=== PATIENT | female | born 1990 | race Caucasian/White ===

== ENCOUNTER 2016-08-15 21:51 | Emergency (ER) | payer OTHER ==
[~2016-08-15] VITALS: Ht 154.9 cm; Wt 52.6 kg
[2016-08-15 23:02] LABS: ABSOLUTE BASOPHIL COUNT 0 /CUMM (0.0-0.2); ABSOLUTE EOSINOPHIL COUNT 0.2 /CUMM (0.0-0.7); ABSOLUTE GRANULOCYTE CT 2.5 /CUMM (1.4-6.5); ABSOLUTE LYMPH COUNT 2.2 /CUMM (1.2-3.4); ABSOLUTE MONOCYTE COUNT 0.3 /CUMM (0.10-0.60); BASOPHIL % 0.6 % (0.0-2.0); GRANULOCYTE % 48.7 % (42.2-75.2); HEMATOCRIT 32.3 % (37-47); MEAN CORPUSCULAR HGB CONC 32.4 G/DL (33.0-37.0); MEAN PLATELET VOLUME 11.3 FL (7.4-10.4); RBC DISTRIBUTION WIDTH 18.7 % (11.5-14.5); RED BLOOD CELL CT 4.19 /CUMM (4.20-5.40); WHITE BLOOD CELL COUNT 5.2 /CUMM (4.8-10.8)
[2016-08-15 23:14] LABS: PLATELET COUNT 166 /CUMM (130-400)
--- NOTE | 2016-08-16 00:07 | ED GI/GU/ABDOMINAL COMPLAINT ---
History of Present Illness General Chief Complaint: General Adult Stated Complaint: "?KIDNEY STONE, L SIDE PAIN" PER PT Source: patient, old records Exam Limitations: no limitations Vital Signs & Intake/Output Vital Signs & Intake/Output Vital Signs Date Time Temp Pulse Resp B/P B/P Pulse O2 O2 Flow FiO2 Mean Ox Delivery Rate 08/15 2344 Room Air 08/15 2340 96.3 67 18 122/58 100 Room Air 08/15 2201 98.7 105 18 124/74 100 Room Air ED Intake and Output 08/16 0000 08/15 1200 Intake Total 1000 Output Total Balance 1000 Intake, IV 1000 Patient 116 lb Weight Weight Reported by Patient Measurement Method Allergies Coded Allergies: brompheniramine (From DIMETAPP (BROMPHENIRAMINE-PPA)) (Severe, ITCHING 08/15/16) guaifenesin (From ROBITUSSIN) (Severe, HIVES 08/15/16) phenylpropanolamine (From DIMETAPP (BROMPHENIRAMINE-PPA)) (Severe, ITCHING 08/15) Reconcile Medications No Known Home Medications Triage Note: PT TO ED FOR KIDNEY STONES, REPORTING SHE HAS A HX OF SAME. REPORTING WORSENING L SIDED FLANK PAIN RADIATING INTO LEFT LOWER ABD TODAY. REPORTING ONE EPISODE OF HEMATURIA TODAY. Triage Nurses Notes Reviewed? yes LMP (ages 10-50): unknown ? n Is pt currently ? No Onset: 1 day Duration: day(s):, changing over time, continues in ED, getting worse, waxing and waning Timing: recent history Quality/Severity: aching, sharpness, severe Location: left flank Radiation: LLQ Activities at Onset: none Prior Abdominal Problems: similar symptoms Past Sexual History: Unobtainable at this time No Modifying Factors: none Associated Symptoms: abdominal pain, dysuria, loss of appetite HPI: 1 day prior to admission patient complains of progressive waxing and waning left flank pain sharp mild now severe rating to the left lower quadrant associated with dysuria. Pain is similar to previous kidney stones. She denies fever chills vomiting diarrhea chest pain cough shortness of breath headache rash bleeding . Past History Travel History Traveled to [place] past 21 day No Medical History Any Pertinent Medical History? see below for history Neurological: NONE EENT: NONE Cardiovascular: NONE Respiratory: asthma Gastrointestinal: NONE Hepatic: NONE Renal: KIDNEY STONES NEPHROSTOMY TUBE Musculoskeletal: NONE Psychiatric: NONE Endocrine: NONE Blood Disorders: NONE Cancer(s): NONE Surgical History Surgical History: ureteral stent Psychosocial History What is your primary language [place] Tobacco Use: Never used ETOH Use: denies use Illicit Drug Use: denies illicit drug use Family History Hx Contributory? No Review of Systems Review of Systems Constitutional: Reports: no symptoms. EENTM: Reports: no symptoms. Respiratory: Reports: no symptoms. Cardiovascular: Reports: no symptoms. GI: Reports: no symptoms. Genitourinary: Reports: see HPI, dysuria, pain. Musculoskeletal: Reports: no symptoms. Skin: Reports: no symptoms. Neurological/Psychological: Reports: no symptoms. Hematologic/Endocrine: Reports: no symptoms. Immunologic/Allergic: Reports: no symptoms. All Other Systems: Reviewed and Negative Physical Exam Physical Exam General Appearance: well developed/nourished, alert, awake, anxious, severe distress, thin Head: atraumatic, normal appearance Eyes: Bilateral: normal appearance, PERRL, EOMI, normal inspection. Ears, Nose, Throat, Mouth: hearing grossly normal, moist mucous membrane Neck: normal inspection, supple, full range of motion, normal alignment Respiratory: normal breath sounds, chest non-tender, no respiratory distress, quiet respiration, lungs clear Cardiovascular: regular rate/rhythm, normal peripheral pulses, norml femoral pulses equa Peripheral Pulses: 4+ carotid (R), 4+ carotid (L) Gastrointestinal: normal bowel sounds, soft, non-tender, no organomegaly Back: normal inspection, normal range of motion, CVA tenderness (L) (mild), no vertebral tenderness Extremities: normal range of motion, no ligament instability Neurologic/Psych: no motor/sensory deficits, awake, alert, oriented x 3, normal gait, normal mood/affect, benzene worker II-XII nml as tested Skin: intact, normal color, warm/dry Core Measures ACS in differential dx? No Severe Sepsis Present: No Septic Shock Present: No Progress Differential Diagnosis: gastritis, kidney stone, UTI/pyelo Plan of Care: Orders Procedure Date/time Status COMPREHENSIVE METABOLIC PANEL 08/15 2241 Complete CBC WITHOUT DIFFERENTIAL 08/15 2240 Complete URINE 08/16 2203 Complete URINALYSIS 08/16 2203 Complete Laboratory Tests 08/15/16 2250: Anion Gap 12, Estimated GFR > 60, BUN/Creatinine Ratio 18.8, Glucose 96, Calcium 9.5, Total Bilirubin 0.8, AST 16, ALT 27, Alkaline Phosphatase 69, Total Protein 7.6, Albumin 4.5, Globulin 3.1, Albumin/Globulin Ratio 1.5, CBC w Diff NO MAN DIFF REQ, RBC 4.19 L, MCV 77.0 L, MCH 25.0 L, RDW 18.7 H, MPV 11.3 H, Gran % 48.7, Lymphocytes % 42.2, Monocytes % 5.5, Eosinophils % 3.0, Basophils % 0.6, Absolute Granulocytes 2.5, Absolute Lymphocytes 2.2, Absolute Monocytes 0.3, Absolute Eosinophils 0.2, Absolute Basophils 0, PUBS MCHC 32.4 L 08/15/162207: Urine Color YEL, Urine Clarity HAZY H, Urine pH 6.0, Ur Specific [place] >= 1.030, Urine Protein TRACE H, Urine Ketones NEG, Urine Nitrite NEG, Urine Bilirubin NEG, Urine Urobilinogen 0.2, Ur Leukocyte Esterase SMALL H, Ur Microscopic SEDIMENT EXAMINED, Urine RBC 10-15 H, Urine WBC 15-25 H, Ur Epithelial Cells PACKD H, Urine Bacteria MANY H, Micro UA Comment , Urine Hemoglobin LARGE H, Urine Glucose NEG, Urine Test NEGATIVE Diagnostic Imaging: Viewed by Me: CT Scan. Discussed w/RAD: CT Scan. Radiology Impression: There is no abnormal finding to provide an explanation for the patient's left flank pain. Specifically there is no hydroureteronephrosis, no nephrolithiasis, and no abnormal calcification along the course of left ureter. There are no abnormal inflammatory changes along the left ureter to suggest the presence of a recently passed stone. There is a cystic right adnexal lesion that measures 3.8 cm in maximal transaxial dimension that is suboptimally assessed on this examination due to the absence of intravenous contrast. Initial ED EKG: none Departure Departure Time of Disposition: 323 Disposition: HOME OR SELF CARE Condition: Stable Clinical Impression Primary Impression: Pyelonephritis Secondary Impressions: Acute left flank pain Referrals: VIRGILIO HANSEN MD Departure Forms: Customer Survey General Discharge Information Prescriptions: Current Visit Scripts Cephalexin (Keflex) 1 CAP PO TID #30 CAP Phenazopyridine HCl (Pyridium) 1 TAB PO TID #9 TAB Oxycodone HCl/Acetaminophen (Percocet 5-325 MG Tablet) 1 TAB PO Q6P PRN pain #15 TAB
--- NOTE | 2016-08-16 02:27 | CT SCAN REPORT ---
EXAMINATION: CT ABDOMEN AND PELVIS WITHOUT CONTRAST CLINICAL INFORMATION: History of stones. Stent. Left flank pain. Dysuria. COMPARISON: No relevant prior imaging available. TECHNIQUE: Multidetector volumetric imaging was performed from the superior aspect of the liver through the pubic symphysis. Sagittal and coronal reformatted images were obtained on the technologist's workstation. DLP: 268.43 mGy-cm FINDINGS: LUNG BASES: Lung bases are clear. There is no pleural or pericardial effusion. LIVER, GALLBLADDER, AND BILIARY TREE: The unenhanced liver attenuation is homogeneous and there is no evidence of a discrete hepatic parenchymal mass. The gallbladder is unremarkable. No evidence of intrahepatic or extrahepatic biliary ductal dilatation. PANCREAS: Unremarkable. SPLEEN: Unremarkable. ADRENAL GLANDS: Unremarkable. KIDNEYS AND URETERS: The kidneys are symmetric in size and there is no worrisome perinephric inflammation or collection. No nephrolithiasis and no worrisome calcifications visualized along the expected course of the right or left ureter. No hydroureteronephrosis. BLADDER: Unremarkable. GASTROINTESTINAL TRACT: The stomach and small bowel are normal. There is equivocal stranding within the mesenteric fat. No free intraperitoneal air or fluid. The colon is normal. The appendix is not definitively visualized however there are no abnormal contour changes of the base of the cecum to suggest acute appendicitis. ABDOMINAL WALL: There are chronic changes of a section. Abdominal wall is otherwise intact with no evidence of abdominal wall hernia. LYMPH NODES: No pathologically enlarged mesenteric or retroperitoneal lymph nodes. VASCULAR: The unenhanced abdominal aorta and inferior vena cava are unremarkable. PELVIC VISCERA: There is an anteverted uterus. There is a cystic right adnexal mass that measures 3.8 cm and maximal transaxial dimension that is suboptimally assessed on this examination due to the absence of intravenous contrast. OSSEOUS STRUCTURES: There is no acute osseous finding. Specifically no worrisome lytic or blastic osseous lesion. No acute fracture. IMPRESSION: There is no abnormal finding to provide an explanation for the patient's left flank pain. Specifically there is no hydroureteronephrosis, no nephrolithiasis, and no abnormal calcification along the course of left ureter. There are no abnormal inflammatory changes along the left ureter to suggest the presence of a recently passed stone. There is a cystic right adnexal lesion that measures 3.8 cm in maximal transaxial dimension that is suboptimally assessed on this examination due to the absence of intravenous contrast.
[2016-08-16] MEDS ORDERED: PYRIDIUM200 M1 PO (03:26)
[2016-08-16] MEDS ORDERED: KEFLEX500 M1 PO (03:26)
[2016-08-16] MEDS ORDERED: PERCOCET 5-3251 EACH PO (03:26)
[2016-08-16 03:43] VITALS: BP 105/62
== END 2016-08-16 03:44 ==
LOC: ERH 21:51
PROVIDERS: Emergency Medicine
DX: N12 Tubulo-interstitial nephritis, not specified as acute or chronic (principal)
CPT/HCPCS: 74176; 81001; 81025; 96374; 96375; J0131; J0696

== ENCOUNTER 2016-09-16 20:35 | Emergency (ER) | payer OTHER ==
[~2016-09-16 20:35] MED LIST: KEFLEX500 M1 PO; PERCOCET 5-3251 EACH PO; PYRIDIUM200 M1 PO
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
--- NOTE | 2016-09-16 22:05 | CT SCAN REPORT ---
EXAMINATION: CT ABDOMEN AND PELVIS WITHOUT CONTRAST CLINICAL INFORMATION: Right flank pain. History of stones and nephrostomy. COMPARISON: CT abdomen pelvis 08/16/2016 TECHNIQUE: Multidetector volumetric imaging was performed from the superior aspect of the liver through the pubic symphysis. Sagittal and coronal reformatted images were obtained on the technologist's workstation. DLP: 257.65 mGy-cm FINDINGS: LUNG BASES: The visualized lung bases are unremarkable. LIVER, GALLBLADDER, AND BILIARY TREE: The liver is normal in size, shape, and attenuation. No focal hepatic lesion or biliary ductal dilatation is present. The gallbladder is unremarkable with no evidence of radiopaque gallstones, gallbladder wall thickening, or obvious pericholecystic inflammatory changes. PANCREAS: Unremarkable. SPLEEN: Unremarkable. ADRENAL GLANDS: Unremarkable. KIDNEYS AND URETERS: Less than 1 mm sized stone at the lower pole of left kidney, axial image 270 (3). No stone in the right kidney. No stone in either ureter. There is no hydronephrosis. BLADDER: Unremarkable. GASTROINTESTINAL TRACT: The small and large bowel are unremarkable. The appendix is unremarkable. ABDOMINAL WALL: No significant hernia is appreciated. LYMPH NODES: Normal. VASCULAR: Unremarkable. PELVIC VISCERA: Unremarkable. OSSEOUS STRUCTURES: Unremarkable. IMPRESSION: Less than 1 mm size stone in the lower pole left kidney. No stone in right kidney. No ureteral calculi and no hydronephrosis.
[2016-09-16 22:13] VITALS: BP 122/79
[2016-09-16 22:22] LABS: ABSOLUTE BASOPHIL COUNT 0 /CUMM (0.0-0.2); ABSOLUTE EOSINOPHIL COUNT 0.2 /CUMM (0.0-0.7); ABSOLUTE GRANULOCYTE CT 2.6 /CUMM (1.4-6.5); ABSOLUTE LYMPH COUNT 1.7 /CUMM (1.2-3.4); ABSOLUTE MONOCYTE COUNT 0.3 /CUMM (0.10-0.60); BASOPHIL % 0.3 % (0.0-2.0); EOSINOPHIL % 4.1 % (0-5); HEMATOCRIT 30.3 % (37-47); MEAN CORPUSCULAR HGB 25.3 PG (27.0-31.0); MEAN CORPUSCULAR HGB CONC 32.4 G/DL (33.0-37.0); RBC DISTRIBUTION WIDTH 17.6 % (11.5-14.5); RED BLOOD CELL CT 3.88 /CUMM (4.20-5.40); WHITE BLOOD CELL COUNT 4.9 /CUMM (4.8-10.8)
[2016-09-16 22:43] LABS: GRANULOCYTE % 53.6 % (42.2-75.2); PLATELET COUNT 137 /CUMM (130-400)
[2016-09-16] MEDS ORDERED: PERCOCET 5-3251 EACH PO (22:50)
[2016-09-16] MEDS ORDERED: MACROBID 100 M100 MG PO (22:50)
== END 2016-09-16 23:04 ==
LOC: ERH 20:35
PROVIDERS: Physician Assistant Medical
DX: N39.0 Urinary tract infection, site not specified (principal)
CPT/HCPCS: 74176; 81001; 81025; 87086; 96361; 96374; 96375; J2405